=== PATIENT | male | born 2000 | race Caucasian/White ===

== ENCOUNTER 2024-07-03 16:36 | Emergency (ER) | payer SELFPAY ==
[~2024-07-03] VITALS: Ht 175.3 cm; Wt 104.3 kg
[2024-07-03 16:57] VITALS: BP 133/82; PULSE 96; RESP 18; TEMP 98.3; O2SAT 97
[2024-07-03] MEDS ORDERED: BENZ-300 PO (17:59)
[2024-07-03] MEDS ORDERED: KEN.1O TP (17:59)
[2024-07-03] MEDS ORDERED: IBUP-2213 PO (17:59)
== END 2024-07-03 18:06 | disposition home or self-care (01) ==
LOC: MED 16:36
DX: K12.0 Recurrent oral aphthae (principal); Z79.1 Long term (current) use of non-steroidal anti-inflammatories (NSAID); Z79.899 Other long term (current) drug therapy
CPT/HCPCS: 99283